=== PATIENT | female | born 1995 | race Two or more races ===

== ENCOUNTER 2019-08-24 05:19 | Emergency (ER) | payer SELFPAY ==
[~2019-08-24] VITALS: Ht 167.6 cm; Wt 100.8 kg
[2019-08-24] MEDS ORDERED: IV RINGERS SOLUTION,LACTATED 1,000 ML IV SCH (05:30)
[2019-08-24] MEDS ORDERED: ONDANSETRON PF 4 MG/2 ML VIAL. IVP ONE (05:30)
[2019-08-24] MEDS ORDERED: FAMOTIDINE 20 MG/2 ML VIAL IVP ONE (05:30)
--- NOTE | 2019-08-24 05:33 | PHYS DOC ---
Past History Past Medical History: No Pertinent History (ANNAMARIA GAMBLE DO) Past Surgical History: Cholecystectomy (ANNAMARIA GAMBLE DO) Smoking: Cigarettes Alcohol Use: Occasionally Drug Use: None (ANNAMARIA GAMBLE DO) Adult General Chief Complaint Chief Complaint: ".. I am hurting really bad on my Rt. side....".." I ve been sick for a month.. coughing .. fever.. and now this severe Rt. flank pain..." HPI HPI Patient is a 24 year old female who presents with above hx and complaints of Rt. flank pain. Patient states symptoms started fever or chills cough proximal one month ago. However this week has developed sharp stabbing right flank pain. Patient does have pleuritic component. Patient denies history of previous kidney stones. There is family history of kidney stones in father side family. Patient did not get a flu vaccination this season. No history immunosuppression. No history of travel or specific ill contacts. (PEGGY PEOPLES MD) Review of Systems Review of Systems Constitutional: Denies fever or chills [] Eyes: Denies change in visual acuity, redness, or eye pain [] HENT: Denies nasal congestion or sore throat [] Respiratory: Denies cough or shortness of breath [] Cardiovascular: No additional information not addressed in HPI [] GI: Denies abdominal pain, nausea, vomiting, bloody stools or diarrhea [] : Denies dysuria or hematuria [] Musculoskeletal: Denies back pain or joint pain [] Integument: Denies rash or skin lesions [] Neurologic: Denies headache, focal weakness or sensory changes [] Endocrine: Denies polyuria or polydipsia [] All other systems were reviewed and found to be within normal limits, except as documented in this note. (PEGGY PEOPLES MD) Family History Family History Father has kidney stones (PEGGY PEOPLES MD) Current Medications Current Medications See nursing for home meds (PEGGY PEOPLES MD) Allergies Allergies No known drug allergies (PEGGY PEOPLES MD) Physical Exam Physical Exam Constitutional: in acute distress, non-toxic appearance. [] HENT: Normocephalic, atraumatic, bilateral external ears normal, oropharynx moist, no oral exudates, nose normal. [] Eyes: PERRLA, EOMI, conjunctiva normal, no discharge. [] Neck: Normal range of motion, no tenderness, supple, no stridor. [] Cardiovascular:Heart rate regular rhythm, no murmur [] Lungs & Thorax: Bilateral breath sounds clear to auscultation [] Abdomen: Bowel sounds decreased, soft, right flank tenderness, no masses, no pulsatile masses. [] Obese. Gallbladder scars Skin: Warm, dry, no erythema, no rash. [] Back: No tenderness, no CVA tenderness. [] Extremities: No tenderness, no cyanosis, no clubbing, ROM intact, no edema. [] Neurologic: Alert and oriented X 3, normal motor function, normal sensory function, no focal deficits noted. [] Psychologic: Affect anxious, judgement normal, mood are full and depressed . Crying . (PEGGY PEOPLES MD) Physical Exam Constitutional: Well developed, well nourished, no acute distress, non-toxic appearance HENT: Normocephalic, atraumatic, oropharynx moist Eyes: Conjunctiva normal, no discharge Neck: Normal range of motion, no tenderness, supple Cardiovascular: Heart rate normal, regular rhythm Lungs & Thorax: Bilateral breath sounds clear to auscultation, no wheezing/rales/rhonchi Abdomen: Soft, no tenderness, no guarding/rebound tenderness/distention Skin: Warm, dry, no erythema, no rash Back: No tenderness, right CVA tenderness Extremities: No tenderness, ROM intact, no edema Neurologic: Alert and oriented X 3, no focal deficits noted Psychologic: Affect normal, judgment normal (ANNAMARIA GAMBLE DO) EKG EKG [] (PEGGY PEOPLES MD) Radiology/Procedures Radiology/Procedures [] (PEGGY PEOPLES MD) Radiology/Procedures PROCEDURE: CHEST PA LATERAL, ABDOMEN SUPINE UPRIGHT INDICATION: Cough, chest pain, right flank pain. COMPARISON STUDY: None. FINDINGS: Lungs: Normal lung volume. Mild ill-defined right basilar opacities. The tracheobronchial tree and hilar structures are normal. Pleura: No pleural effusion or pneumothorax. Heart and Mediastinum: The cardiomediastinal silhouette is normal. The great vessels of the thorax are normal. Abdomen: Nonobstructive bowel gas pattern. No free air. Moderate colonic stool burden. No large calcifications. IUD overlying the pelvis. Bones and Soft Tissues: The bones and soft tissues are within normal limits. IMPRESSION: 1. Mild ill-defined right basilar opacities, could represent subsegmental atelectasis or an early infectious process. 2. Nonobstructive bowel gas pattern. No large calcifications. Electronically signed by: Ludwin Owusu MD (08/24/2019 7:01 AM) [id number] (ANNAMARIA GAMBLE DO) Course & Med Decision Making Course & Med Decision Making Pertinent Labs and Imaging studies reviewed. (See chart for details) Patient endorsed to Dr. Gamble at shift change. He will make disposition of pt. Labs and X-rays pending. 0600 [] (PEGGY PEOPLES MD) Course & Med Decision Making 0600- Sign out received from Dr. Peoples for patient with right flank pain. Patient also with history of cough. Patient seen and evaluated by myself. Labs reviewed and posted to chart. UA with signs of infection and/or contamination. Given symptoms and discomfort will empirically treat. Chest x-ray and abdominal x-ray series with notation of increased retained stool on right side. No focal pneumonia appreciated more likely atelectasis. Patient stable for discharge with outpatient follow-up with PCP. Discussed findings and plan with patient, who acknowledges understanding and agreement. (ANNAMARIA GAMBLE DO) Dragon Disclaimer Dragon Disclaimer This electronic medical record was generated, in whole or in part, using a voice recognition dictation system. (PEGGY PEOPLES MD) Departure Departure: Impression: Primary Impression: Pyelonephritis Additional Impression: Constipation Disposition: HOME, SELF-CARE Condition: STABLE Referrals: PCP,NO (PCP) Patient Instructions: Constipation, Adult, [id number], Pyelonephritis, Adult, [id number] Scripts Sennosides/Docusate Sodium (Colace 2-in-1 Tablet) 1 Each Tablet 1 TAB PO QHS PRN for CONSTIPATION, #20 TAB 0 Refills Prov: ANNAMARIA GAMBLE DO 08/24/19 Orphenadrine Citrate (ORPHENADRINE CITRATE) 100 Mg Tablet.er 1 TAB PO BID PRN for PAIN, #14 TAB Prov: ANNAMARIA GAMBLE DO 08/24/19 Ondansetron (ONDANSETRON ODT) 4 Mg Tab.rapdis 1 TAB PO PRN Q6-8HRS PRN for NAUSEA, #16 TAB Prov: ANNAMARIA GAMBLE DO 08/24/19 Cephalexin (KEFLEX) 500 Mg Capsule 1 CAP PO TID for UTI for 7 Days, #21 CAP 0 Refills Prov: ANNAMARIA GAMBLE DO 08/24/19 Dragon Disclaimer This chart was dictated in whole or in part using Voice Recognition software in a busy, high-work load, and often noisy Emergency Department environment. It may contain unintended and wholly unrecognized errors or omissions. (PEGGY PEOPLES MD) Problem Qualifiers Additional Impression: Constipation Constipation type: unspecified constipation type Qualified Codes: K59.00 - Constipation, unspecified PEGGY PEOPLES MD Aug 24, 2019 05:33 ANNAMARIA GAMBLE DO Aug 24, 2019 07:30
[2019-08-24] MEDS ORDERED: KETOROLAC 30 MG/ML VIAL. IVP ONE (06:15)
[2019-08-24] MEDS ORDERED: KETOROLAC 15 MG/ML VIAL. IVP ONE (06:30)
[2019-08-24 06:34] LABS: BASO # 0.1 x10^3/uL (0.0-0.2); BASO % 1 % (0-3); EOS # 0.8 x10^3/uL (0.0-0.7); EOS % 8 % (0-3); HEMATOCRIT 44.2 % (36.0-47.0); HEMOGLOBIN 14.6 g/dL (12.0-15.5); LYMPH # 2.1 x10^3/uL (1.0-4.8); LYMPH % 19 % (24-48); MEAN CORPUSCULAR HEMOGLOBIN 29 pg (25-35); MEAN CORPUSCULAR HGB CONC 33 g/dL (31-37); MEAN CORPUSCULAR VOLUME 89 fL (79-100); MONO # 0.9 x10^3/uL (0.0-1.1); MONO % 9 % (0-9); NEUT % 64 % (31-73); PLATELET COUNT 383 x10^3/uL (140-400); RED BLOOD COUNT 4.98 x10^6/uL (3.50-5.40); RED CELL DISTRIBUTION WIDTH 15.2 % (11.5-14.5)
[2019-08-24 06:41] LABS: BACTERIA,URINE MANY /HPF (0-FEW); BILIRUBIN,URINE NEG (NEG); CLARITY,URINE HAZY; COLOR,URINE YELLOW; GLUCOSE,URINE NEG (NEG); NITRITE,URINE NEG (NEG); SQUAMOUS EPITHELIAL CELL,UR MANY /LPF; UROBILINOGEN,URINE 0.2 mg/dL (0.2 mg/dL); WBC,URINE >40 /HPF (0-4)
[2019-08-24 06:50] LABS: INFLUENZA A PATIENT NEGATIVE (NEGATIVE); INFLUENZA B PATIENT NEGATIVE (NEGATIVE)
[2019-08-24] MEDS ORDERED: IV NORMAL SALINE 50ML 50 ML ONE (06:58)
[2019-08-24] MEDS ORDERED: cefTRIAXone SODIUM 1 GM VIAL ONE (06:59)
--- NOTE | 2019-08-24 07:04 | RAD ---
CHEST PA LATERAL, ABDOMEN SUPINE UPRIGHT INDICATION: Cough, chest pain, right flank pain. COMPARISON STUDY: None. FINDINGS: Lungs: Normal lung volume. Mild ill-defined right basilar opacities. The tracheobronchial tree and hilar structures are normal. Pleura: No pleural effusion or pneumothorax. Heart and Mediastinum: The cardiomediastinal silhouette is normal. The great vessels of the thorax are normal. Abdomen: Nonobstructive bowel gas pattern. No free air. Moderate colonic stool burden. No large calcifications. IUD overlying the pelvis. Bones and Soft Tissues: The bones and soft tissues are within normal limits. IMPRESSION: 1. Mild ill-defined right basilar opacities, could represent subsegmental atelectasis or an early infectious process. 2. Nonobstructive bowel gas pattern. No large calcifications. Electronically signed by: Ludwin Owusu MD (08/24/2019 7:01 AM) [id number]
[2019-08-24] MEDS ORDERED: ORPHENADRINE CITRATE 60 MG/2 ML VIAL. IV ONE (07:30)
[2019-08-24] MEDS ORDERED: CEPH-264 PO (07:30)
[2019-08-24] MEDS ORDERED: ONDA4TAB12 PO (07:30)
[2019-08-24 08:16] LABS: ALBUMIN 4.7 g/dL (3.4-5.0); CALCIUM 9.8 mg/dL (8.5-10.1); CREATININE 0.6 mg/dL (0.6-1.0); GFR 120.8
[2019-08-24 08:17] LABS: POTASSIUM 4.1 mmol/L (3.5-5.1); TOTAL BILIRUBIN 0.6 mg/dL (0.2-1.0)
[2019-08-24 08:18] LABS: DIRECT BILIRUBIN 0.2 mg/dL (0.0-0.2)
[2019-08-24 08:22] LABS: TOTAL PROTEIN 8.8 g/dL (6.4-8.2)
[2019-08-24] MEDS ORDERED: ORPH-16 PO (08:48)
[2019-08-24] MEDS ORDERED: SENN-121 PO (08:49)
[2019-08-24 08:50] VITALS: BP 118/57
[2019-08-24 08:58] LABS: BARBITURATES NEG (NEG); BENZODIAZEPINES NEG (NEG); CANNABINOIDS NEG (NEG); COCAINE NEG (NEG); METHADONE NEG (NEG); OPIATES NEG (NEG); PHENCYCLIDINE NEG (NEG)
[2019-08-24 09:01] LABS: AMPHETAMINE/METHAMPHETAMINE NEG (NEG)
== END 2019-08-24 08:50 | disposition home or self-care (01) ==
LOC: ER 05:19
DX: N12 Tubulo-interstitial nephritis, not specified as acute or chronic (principal); K59.00 Constipation, unspecified; F17.210 Nicotine dependence, cigarettes, uncomplicated; Z90.49 Acquired absence of other specified parts of digestive tract
CPT/HCPCS: 36415; 71046; 74019; 80048; 80076; 80307; 81001; 81025; 82150; 83690; 85025; 85610; 85730; 87086; 87804; 96365; 96375; 99284; J0696; J1885; J2360; J2405; J3010; J3490; J7120